=== PATIENT | female | born 1985 | race Caucasian/White ===

== ENCOUNTER → 2020-03-18 | Outpatient (CLI) | payer OTHER ==
--- NOTE | 2020-04-04 18:35 | PFR/MVV ---
[facility] [place] [address] PULMONARY FUNCTION MVV/REPORT Name: SUMA SWAIN Room #: REG [facility].#: [id number] Admission: 03/18/20 Attend Phys: JERMAN Mojica Discharge: Date of : 87 Report #: [id number] THIS REPORT FOR: //name// >> SPIROMETRY: (BTPS) Height: 65 in cm Weight: 237 lbs kg Exam Date: 03/18/20 PRE-RX POST-RX PRED BEST %PRED BEST %PRED %CHG FVC LITERS . 3.83 . 3.29 . 86 . 3.30 . 86 . 0 FEV1 LITERS . 3.03 . 2.62 . 87 . 2.78 . 92 . 6 FEV1/FVC % . 78 . 80 . 102 . 84 . 108 . 6 ABU39-61% L/Sec . 3.46 . 2.60 . 75 . 3.19 . 92 . 22 PEF L/SEC . 6.53 . 5.11 . 78 . 6.34 . 97 . 24 FEF50/FIF50 UNITLESS . <1.00 . 1.67 . . 1.67 . . -0 MVV L/Min . 113 . 96 . 85 f 1/Min . . 130 . >> LUNG VOLUMES: (BTPS) PRE-RX POST-RX PRED AVG %PRED AVG %PRED %CHG VC Liters . 3.83 . 4.52 . 118 . . . TLC Liters . 5.31 . 4.76 . 90 . . . RV Liters . 1.68 . 0.24 . 14 . . . RV/TLC % . 30 . 5 . 17 . . . FRC PL Liters . 2.21 . 1.69 . 76 . . . FRC N2 Liters . 2.21 . . . . . ERV Liters . 1.25 . 1.45 . 115 . . . IC Liters . 2.51 . 4.10 . 164 . . . >> DIFFUSION: DLCO ml/Min/mmHg . 29.6 . 21.7 . 74 . . . DL Yanelis ml/Min/mmHg . 29.6 . 21.7 . 74 . . . DLCO/VA ml/Min/mmHg . 4.45 . 4.95 . 111 . . . VA Liters . . 4.40 . . . . COMMENTS: COMMENTS: >> RESISTANCE: [facility] [address] [place] [address] PULMONARY FUNCTION MVV/REPORT Name: SUMA SWAIN AL Room #: REG [facility].#: [id number] Admission: 03/18/20 Attend Phys: JERMAN Mojica Discharge: Date of : 87 Report #: [id number] PRE-RX PRED AVG %PRED Raw Total cmH20/L/Sec . . 3.73 . Raw Insp cmH20/L/Sec . . 1.06 . Raw Exp cmH20/L/Sec . . 2.31 . Raw cmH20/L/Sec . 1.78 . 1.94 . 109 Gaw L/Sec/cmH20 . 0.530 . 0.515 . 97 sRaw cmH20 Sec . 3.93 . 4.82 . 123 sGaw l/cmH20 Sec . 0.254 . 0.207 . 81 Vtq Liters . . 2.48 . # = OUTSIDE 95% CONFIDENCE INTERVAL CALIBRATION: PRED: 3.00 ACTUAL: EXP 3.01 INSP 3.02 [facility]- [id number] >> INTERPRETATION/IMPRESSION: CC: Suyapa Payne [facility] PULMONARY FUNCTION TEST Spirometric examination showed normal flows. Lung volumes are normal. Diffusion capacity is normal, corrected for alveolar volume. Flow volume loop is normal. Following bronchodilators, there was no significant improvement in the ____. IMPRESSION: Normal pulmonary functions. <ELECTRONICALLY SIGNED> By: Vj Yoder MD 04/04/20 1835 Vj Yoder MD /nt
== END ==
LOC: PUL 12:48
PROVIDERS: ATTEND Nurse Practitioner Family
DX: R06.00 Dyspnea, unspecified (principal)